=== PATIENT | male | born 1960 | race Caucasian/White ===

== ENCOUNTER 2021-06-02 00:04 | Inpatient (IN) | payer OTHER ==
[2021-06-02] VITALS (38 sets, daily range): BP systolic 87–146; BP diastolic 42–91
[~2021-06-02] VITALS: Ht 167.6 cm; Wt 69.0 kg
--- NOTE | 2021-06-02 02:04 | PCM.HP ---
History of Present Illness Reason for Visit: (1) Hyponatremia ICD Code: E87.1 - Hypo-osmolality and hyponatremia SNOMED: 24263774 Hx of Present Illness Mr. Goodwin is a pleasant 61-year-old inmate who presented acutely to the stand- alone emergency department with confusion which upon laboratory and CT evaluation proved to be secondary to acute hyponatremia. The patient was given at least 2 L of bolus normal saline and a third bag was run slowly over the course of several hours prior to his transfer here, with the last measured sodium at 124 at approximately 10 PM on 06/01. The patient reports that he had been in his usual state of health prior to the last few days when he began to notice feeling such as numbness in his head and an overall sense of confusion and malaise, giving way since that time to a feeling of vague global discomfort. He notes that he was compliant with medications for hypertension including verapamil and metoprolol as well as hydrochlorothiazide, and was also compliant with atorvastatin for hyperlipidemia. Review of Systems Constitutional: Weakness, Malaise; No: Chills, Sweats Eyes: No: Vision change ENT: No: Ear discharge, Nose pain, Nose discharge Respiratory: No: Cough, Shortness of breath, SOB with excertion Cardiovascular: No: Palpitations, Orthopnea, Paroxysmal Noc. Dyspnea Gastrointestinal: No: Nausea, Vomiting, Abdominal Pain, Diarrhea Genitourinary: No Dysuria, No Frequency, No Incontinence Musculoskeletal: back pain; No: neck pain, shoulder pain Skin: No: Rash, Lesions, Jaundice Neurological: Weakness, Numbness, Incoordination, Change in speech, Confusion; No: Seizures VTE VTE Risk Score VTE Risk: Score 0-1 = Low Risk (Aggressive mobilization; early ambulation; no VTE prophylaxis required) Score 2: Moderate Risk (Intermittent/Pneumatic Compression Device OR Lovenox/Heparin/Coumadin) Score 3-4: High Risk (Intermittent/Pneumatic Compression Device AND Lovenox/Heparin/Coumadin) Score > or =5: Highest Risk (Intermittent/Pneumatic Compression Device AND Lovenox/Heparin/Coumadin) Exam General Appearance: Alert, Oriented X3, Cooperative, No acute distress HEENT: Atraumatic, PERRLA, EOMI Respiratory: Clear to auscultation, Normal air movement Cardiovascular: Regular rate, Normal S1, Normal S2 Abdominal: Normal bowel sounds, Soft, No tenderness Extremities: No clubbing, No cyanosis, No edema Skin: No rash, No breakdown, No lesions Neuro: Normal gait, Normal speech, Strength at 5/5 X4 ext, Normal tone Psych/Mental Status: Mental status NL, Mood NL Assessment/Plan Assessment/Plan Problems: (1) Hyponatremia Status: Acute Assessment & Plan: Almost certainly secondary to the patient's hydrochlorothiazide, as a consequence this medication is stopped. Patient is status post 2 L of bolus normal saline and the third bag run more slowly with his initial sodium measured at 119 and a subsequent recheck at 10 PM on 06/01 measuring 124. BMP is going now with every 6 hours BMPs to follow, current goal is no higher than 127 at 1600 on 06/02, as a consequence we will hold off on any further normal saline until we have a lab back. ICD Code: E87.1 - Hypo-osmolality and hyponatremia SNOMED: 26783106 (2) HTN (hypertension) Status: Chronic Assessment & Plan: Change regimen to Coreg Alone, will add additional agents for hypertension as necessary, of greatest importance of stopping his hydro chlorothiazide ICD Code: I10 - Essential (primary) hypertension SNOMED: 73367749 (3) Confusion Status: Acute Assessment & Plan: Almost certainly secondary to his hyponatremia, has mostly resolved with even slight improvement of the above. ICD Code: R41.0 - Disorientation, unspecified SNOMED: 343102607 (4) HLD (hyperlipidemia) Status: Chronic Assessment & Plan: Continue with home atorvastatin ICD Code: E78.5 - Hyperlipidemia, unspecified SNOMED: 16003044 (5) CAD (coronary artery disease) Status: Chronic Assessment & Plan: Patient cannot recall any focal cardiac history, but given comorbidities merit secondary prophylaxis on aspirin and statin in the interim ICD Code: I25.10 - Atherosclerotic heart disease of [place] coronary artery without angina pectoris SNOMED: 12511798 DONI CASTILLO MD Jun 02, 2021 02:04
[2021-06-02 02:06] LABS: BASOPHIL # 0.1 10^3/uL (0.0-0.1); BASOPHIL % 0.8 % (0.0-0.2); EOSINOPHIL # 0.3 10^3/uL (0.0-0.2); EOSINOPHIL % 4.2 % (0.0-5.0); LYMPHOCYTES # 1.82 10^3/uL1 (1.0-4.8); LYMPHOCYTES % 30.9 % (24.0-44.0); MEAN CORP HGB 33.3 pg (26-34); MONOCYTES # 0.8 10^3/uL (0.3-0.8); MONOCYTES % 12.7 % (5.0-12.0); NEUTROPHILS % 51.2 % (41.0-85.0); PLATELET COUNT 221 10^3/uL (150-400)
[2021-06-02 02:10] LABS: CALCIUM 7.5 mg/dL (8.4-10.5); CARBON DIOXIDE 22.7 mmol/L (20.0-32)
[2021-06-02] MEDS: TYLENOL PO PRN ×2 (02:34→15:41)
[2021-06-02] MEDS ORDERED: CLAR-13 PO (03:11)
[2021-06-02] MEDS ORDERED: METF500T17 PO (03:11)
[2021-06-02] MEDS ORDERED: LISI40TA10 PO (03:11)
[2021-06-02] MEDS ORDERED: VERA240C2 PO (03:11)
[2021-06-02] MEDS ORDERED: HYDR12.58 PO (03:11)
[2021-06-02] MEDS ORDERED: PERP8TAB2 PO (03:11)
[2021-06-02] MEDS ORDERED: OMEP20CA19 PO (03:11)
[2021-06-02] MEDS ORDERED: METR-67 PO (03:11)
[2021-06-02 08:17] LABS: CALCIUM 7.9 mg/dL (8.4-10.5); CARBON DIOXIDE 23.2 mmol/L (20.0-32)
[2021-06-02] MEDS: COREG PO SCH ×2 (08:29→20:52)
--- NOTE | 2021-06-02 10:52 | PRM.PN ---
Subjective Subjective Date: Jun 02, 2021 Time: 09:00 Subjective Patient is feeling better. Not confused. Sodium 129. IV fluids discontinued. Review of Systems Constitutional: Weakness, Malaise; No: Chills, Sweats Eyes: No: Vision change ENT: No: Ear discharge, Nose pain, Nose discharge Respiratory: No: Cough, Shortness of breath, SOB with excertion Cardiovascular: No: Palpitations, Orthopnea, Paroxysmal Noc. Dyspnea Gastrointestinal: No: Nausea, Vomiting, Abdominal Pain, Diarrhea Genitourinary: No Dysuria, No Frequency, No Incontinence Musculoskeletal: back pain; No: neck pain, shoulder pain Skin: No: Rash, Lesions, Jaundice Neurological: Weakness, Numbness, Incoordination, Change in speech, Confusion; No: Seizures Scheduled Clarithromycin (Clarithromycin), 1 TAB PO DAILY24, (Reported) Hydrochlorothiazide (Hydrochlorothiazide), 1 TAB PO DAILY, (Reported) Lisinopril (Lisinopril), 1 TAB PO DAILY, (Reported) Metformin Hcl (Metformin Hcl), 1 TAB PO BID, (Reported) Metronidazole (Metronidazole), 1 TAB PO BID, (Reported) Omeprazole (Omeprazole), 1 CAP PO DAILY, (Reported) Perphenazine (Perphenazine), 1 TAB PO HS, (Reported) Verapamil Hcl (Verapamil Er), 1 CAP PO DAILY, (Reported) Objective Vitals and I/O Vital Sign - Last 24 Hours 06/02/21 06/02/21 06/02/21 06/02/21 01:45 02:00 02:07 02:15 Temp 98.1 B/P (MAP) 146/80 (102) 127/72 (90) 123/68 (86) Pulse Ox 94 100 94 O2 Delivery Room Air 06/02/21 06/02/21 06/02/21 06/02/21 02:30 02:45 02:52 03:00 Pulse 65 62 71 66 Resp 19 18 16 B/P (MAP) 105/56 (72) 118/59 (78) 132/65 (87) Pulse Ox 99 100 98 06/02/21 06/02/21 06/02/21 06/02/21 03:15 03:30 03:45 04:00 Pulse 64 66 67 72 Resp 14 15 12 14 B/P (MAP) 115/57 (76) 96/47 (63) 114/87 (96) 115/60 (78) Pulse Ox 98 94 94 98 06/02/21 06/02/21 06/02/21 06/02/21 04:15 04:20 04:21 04:23 Temp 98.3 Pulse 67 67 Resp 15 16 B/P (MAP) 94/44 (61) Pulse Ox 98 O2 Delivery Room Air 06/02/21 06/02/21 06/02/21 06/02/21 04:30 04:34 04:45 05:00 Pulse 66 72 66 Resp 14 17 14 B/P (MAP) 98/42 (60) 110/43 (65) 87/44 (58) Pulse Ox 98 96 95 O2 Delivery Room Air 06/02/21 06/02/21 06/02/21 06/02/21 05:15 05:30 05:45 06:00 Pulse 81 67 64 65 Resp 28 19 15 19 B/P (MAP) 105/54 (71) 108/52 (70) 92/46 (61) 96/50 (65) Pulse Ox 97 100 97 98 06/02/21 06/02/21 06/02/21 06/02/21 06:15 06:30 06:45 07:00 Pulse 64 66 65 65 Resp 17 14 18 13 B/P (MAP) 107/58 (74) 107/59 (75) 109/60 (76) 108/67 (81) Pulse Ox 97 97 97 99 06/02/21 06/02/21 06/02/21 06/02/21 07:15 07:30 07:45 08:00 Pulse 67 65 71 66 Resp 17 19 19 18 B/P (MAP) 116/67 (83) 112/67 (82) 141/54 (83) 114/70 (85) Pulse Ox 97 97 99 98 06/02/21 06/02/21 06/02/21 06/02/21 08:06 08:15 08:29 08:30 Pulse 67 82 82 Resp 10 14 B/P (MAP) 107/66 (80) 131/75 Pulse Ox 97 97 O2 Delivery Room Air 06/02/21 06/02/21 06/02/21 06/02/21 08:45 09:00 09:15 09:30 Pulse 72 70 71 69 Resp 26 18 12 15 B/P (MAP) 119/67 (84) 126/72 (90) 124/71 (88) 116/70 (85) Pulse Ox 98 97 100 98 06/02/21 09:45 Pulse 70 Resp 9 B/P (MAP) 112/70 (84) Pulse Ox 98 Intake and Output 06/02/21 07:00 Intake Total 554 ml Output Total 2250 ml Balance -1696 ml General: Alert, Oriented X3, Cooperative, No acute distress HEENT: Atraumatic, PERRLA, EOMI Lungs: Clear to auscultation, Normal air movement Heart: Regular rate, Normal S1, Normal S2 Abdomen: Normal bowel sounds, Soft, No tenderness Extremities: No clubbing, No cyanosis, No edema Neuro: Normal gait, Normal speech, Strength at 5/5 X4 ext, Normal tone Psych/Mental Status: Mental status NL, Mood NL All Results(Lab/Rad) Laboratory Tests Test 06/02/21 01:54 06/02/21 02:43 06/02/21 08:00 White Blood Count 5.9 10^3/uL Red Blood Count 3.90 10^6/uL Hemoglobin 13.0 g/dL Hematocrit 36.0 % Mean Corpuscular Volume 92.3 fL Mean Corpuscular Hemoglobin 33.3 pg Mean Corpuscular Hemoglobin Concent 36.1 g/dL Red Cell Distribution Width 12.0 % Platelet Count 221 10^3/uL Mean Platelet Volume 8.8 fL Neutrophils (%) (Auto) 51.2 % Lymphocytes (%) (Auto) 30.9 % Monocytes (%) (Auto) 12.7 % Neutrophils # (Auto) 3.0 10^3/uL Lymphocytes # (Auto) 1.82 10^3/uL1 Monocytes # (Auto) 0.8 10^3/uL Absolute Immature Granulocyte (auto 0.01 10^3 u/L Absolute Eosinophils (auto) 0.3 10^3/uL Immature Granulocytes % 0.20 % Eosinophils % 4.2 % Basophils % 0.8 % Basophils # 0.1 10^3/uL Sodium Level 126 mmol/L 129 mmol/L Potassium Level 4.0 mmol/L 4.3 mmol/L Chloride Level 93.0 mmol/L 97.0 mmol/L Carbon Dioxide Level 22.7 mmol/L 23.2 mmol/L Glucose Level 96 mg/dL 118 mg/dL Blood Urea Nitrogen 7 mg/dL 8 mg/dL Creatinine 0.62 mg/dL 0.63 mg/dL Calcium Level 7.5 mg/dL 7.9 mg/dL Anion Gap 14.3 13.1 Estimated GFR () 160.7 157.7 Est GFR (CKD-EPI)(Non-Afr Citizen Of [place]) 132.8 130.4 BUN/Creatinine Ratio 11.0 12.0 Bedside Glucose 77 Current Medications Medications (Trade) Dose Ordered Sig/Kim Route PRN Reason Start Time Stop Time Status Last Admin Dose Admin Acetaminophen (Tylenol) 1,000 mg Q6H PRN PO PAIN 1 - 3 06/02/21 02:00 07/02/21 01:59 06/02/21 02:34 Carvedilol (Coreg) 6.25 mg BID PO 06/02/21 09:00 07/02/21 08:59 06/02/21 08:29 Atorvastatin Calcium (Lipitor) 40 mg HS PO 06/02/21 21:00 07/02/21 20:59 Assessment/Plan Assessment/Plan Problems: (1) Hyponatremia Status: Acute ICD Code: E87.1 - Hypo-osmolality and hyponatremia SNOMED: 32222855 (2) HTN (hypertension) Status: Chronic ICD Code: I10 - Essential (primary) hypertension SNOMED: 75539961 (3) Confusion Status: Acute ICD Code: R41.0 - Disorientation, unspecified SNOMED: 113739940 (4) HLD (hyperlipidemia) Status: Chronic ICD Code: E78.5 - Hyperlipidemia, unspecified SNOMED: 25969095 (5) CAD (coronary artery disease) Status: Chronic ICD Code: I25.10 - Atherosclerotic heart disease of [place] coronary artery without angina pectoris SNOMED: 81229466 Plan IV fluids discontinued. Transfer the patient to the floor. Hydrochlorothiazide discontinued. Possible discharge in a.m. if stable. SANDY ALVAREZ MD Jun 02, 2021 10:52
[2021-06-02] MEDS ORDERED: LIPITOR PO SCH (21:00)
[2021-06-03 06:16] LABS: CALCIUM 8.2 mg/dL (8.4-10.5); CARBON DIOXIDE 28.1 mmol/L (20.0-32)
[2021-06-03 06:22] VITALS: BP 131/78
[2021-06-03 07:53] VITALS: BP 150/93
[2021-06-03] MEDS ORDERED: NORVASC PO SCH (09:00)
[2021-06-03] MEDS: TYLENOL PO PRN (09:18)
[2021-06-03] MEDS: COREG PO SCH (09:18)
[2021-06-03 11:55] VITALS: BP 130/86
--- NOTE | 2021-06-03 12:37 | PRM.DC ---
Discharge Summary Date of Discharge: Jun 03, 2021 Time of Request to Discharge: 09:00 Hospital Course 61-year-old inmate who presented acutely to the stand-alone emergency department with confusion which upon laboratory proved to be secondary to acute hyponatremia. The patient was given at least 2 L of bolus normal saline and a third bag was run slowly over the course of several hours prior to his transfer here, with the last measured sodium at 124 at approximately 10 PM on 06/01. The patient reports that he had been in his usual state of health prior to the last few days when he began to notice feeling such as numbness in his head and an overall sense of confusion and malaise, giving way since that time to a feeling of vague global discomfort. He notes that he was compliant with medications for hypertension i and metoprolol as well as hydrochlorothiazide, and was also compliant with atorvastatin for hyperlipidemia.Sodium level was 119. Today serum sodium is 132. Patient is feeling better. Awake alert oriented not confused. Medication adjustment for blood pressure. Chlorothiazide discontinued. We will add amlodipine.Patient is an inmate will be discharged back to facility. Discharged stable condition. Follow-up physician in 1 week.. As tolerated. Diet heart healthy/low-sodium. Exam/Vitals Blood pressure 130/86, heart rate 70, respiratory rate 18, temperature 98. General: Alert, Oriented X3 HEENT: Atraumatic, PERRLA Neck: Supple, No JVD, No thyromegaly Lungs: Clear to auscultation, Normal air movement Heart: Regular rate, Normal S1, Normal S2 Abdomen: Normal bowel sounds, Soft, No tenderness Extremities: No clubbing, No cyanosis, No edema Skin: No rashes, No breakdown, No significant lesion Neuro: Normal gait, Normal speech, Strength at 5/5 X4 ext Psych/Mental Status: Mental status NL, Mood NL Scheduled Clarithromycin (Clarithromycin), 1 TAB PO DAILY24, (Reported) Hydrochlorothiazide (Hydrochlorothiazide), 1 TAB PO DAILY, (Reported) Lisinopril (Lisinopril), 1 TAB PO DAILY, (Reported) Metformin Hcl (Metformin Hcl), 1 TAB PO BID, (Reported) Metronidazole (Metronidazole), 1 TAB PO BID, (Reported) Omeprazole (Omeprazole), 1 CAP PO DAILY, (Reported) Perphenazine (Perphenazine), 1 TAB PO HS, (Reported) Verapamil Hcl (Verapamil Er), 1 CAP PO DAILY, (Reported) Sepsis Evaluation @ Discharge 06/02/21 19:29 Plan Problems: (1) Hyponatremia Status: Acute ICD Code: E87.1 - Hypo-osmolality and hyponatremia SNOMED: 05651467 (2) Confusion Status: Acute ICD Code: R41.0 - Disorientation, unspecified SNOMED: 996511359 (3) HTN (hypertension) Status: Chronic ICD Code: I10 - Essential (primary) hypertension SNOMED: 99253818 (4) HLD (hyperlipidemia) Status: Chronic ICD Code: E78.5 - Hyperlipidemia, unspecified SNOMED: 54133829 Discharge Date: Jun 03, 2021 Discharge Disposition: Stable Plan 61-year-old inmate who presented acutely to the stand-alone emergency department with confusion which upon laboratory proved to be secondary to acute hyponatremia. The patient was given at least 2 L of bolus normal saline and a third bag was run slowly over the course of several hours prior to his transfer here, with the last measured sodium at 124 at approximately 10 PM on 06/01. The patient reports that he had been in his usual state of health prior to the last few days when he began to notice feeling such as numbness in his head and an overall sense of confusion and malaise, giving way since that time to a feeling of vague global discomfort. He notes that he was compliant with medications for hypertension i and metoprolol as well as hydrochlorothiazide, and was also compliant with atorvastatin for hyperlipidemia.Sodium level was 119. Today serum sodium is 132. Patient is feeling better. Awake alert oriented not confused. Medication adjustment for blood pressure. Chlorothiazide discontinued. We will add amlodipine.Patient is an inmate will be discharged back to facility. Discharged stable condition. Follow-up physician in 1 week.. As tolerated. Diet heart healthy/low-sodium. SANDY ALVAREZ MD Jun 03, 2021 12:37
[2021-06-03] MEDS ORDERED: AMLO5TAB4 PO (15:33)
[2021-06-03] MEDS ORDERED: CARV6.25 PO (15:33)
[2021-06-03] MEDS ORDERED: CATAPRES PO STA (15:53)
[2021-06-03 16:00] VITALS: BP 170/105
[2021-06-03] MEDS ORDERED: LIPITOR PO SCH (21:00)
== END 2021-06-03 16:00 | disposition home or self-care (01) | DRG 641 ==
LOC: EDSTATUS 00:05 → ICU 00:06 → UNDOADMIN 00:06 → ICU 00:18 → EEVIPCON 00:18 → MS 10:50
PROVIDERS: ADMIT Surgery; ATTEND Internal Medicine
DX: E87.1 Hypo-osmolality and hyponatremia (principal); I10 Essential (primary) hypertension; I25.10 Atherosclerotic heart disease of native coronary artery without angina pectoris; E78.5 Hyperlipidemia, unspecified
CPT/HCPCS: 36415; 80048; 82948; 85025; G0378